=== PATIENT | female | born 1990 | race Caucasian/White ===

== ENCOUNTER 2022-03-20 01:26 | Emergency (ER) | payer BC, MEDICAID, SELFPAY ==
[2022-03-20] MEDS: EPINEPHrine 1 mg/mL INJ 0.5 MG IM (01:44)
[2022-03-20] MEDS: diphenhydrAMINE 50 mg/mL SDV 1mL IVP (01:44)
[2022-03-20] MEDS: famotidine 20 mg/2 mL INJ 40 MG IVP (01:44)
[2022-03-20 01:45] VITALS: BP 96/80; PULSE 101; RESP 24; TEMP 37.3; O2SAT 93; BMI 46.0
[2022-03-20] MEDS: ondansetron 2 mg/ML SDV 2 mL 4 MG IVP (01:45)
[2022-03-20 01:48] VITALS: BP 157/102; PULSE 100; RESP 20; O2SAT 92
[2022-03-20] MEDS: sodium chloride 0.9% 500 ML 999 ML IV (01:49)
--- NOTE | 2022-03-20 01:50 | W.ED.ALLEREA ---
HPI - Allergic Reaction General: Chief complaint: Allergic Reaction Stated complaint: allergic reaction Time Seen by Provider: 03/20/22 01:30 Source: patient Mode of arrival: ambulatory Limitations: no limitations History of Present Illness: HPI narrative: 31-year-old female who states that she had some tooth pain and tonight she taken an old amoxicillin she states that shortly thereafter roughly an hour or 2 ago she started having a rash to her chest and face along with lip and eye swelling and scratchiness in her throat and started having shortness of breath. She states she took Benadryl at home she denies any worsening improving factors. Patient does have an obvious rash here. Associated symptoms: Deny abdominal pain, nausea or vomiting Review of Systems Const: Denies: fever(s), chills, body aches or change in appetite Eyes: Denies: blurry vision or eye discomfort ENMT: Denies: throat pain or dental pain Card: Denies: chest pain Resp: Reports: dyspnea GI: Denies: abdominal pain, nausea, vomiting or diarrhea : Denies: dysuria Musc: Denies: neck pain or back pain Skin/Breast: Reports: rash and pruritus Neuro: Denies: headache(s) Psych: Denies: depression Yandel/Lymph: Denies: easy bruising All/Imm: Denies: urticaria PFSH ED PFSH: Medical History (Updated 03/20/22 @ 03:16 by Erin Jovel MD) No pertinent past medical history Social History (Updated 03/20/22 @ 01:51 by Erin Jovel MD) Substance/Drug Use: never Physical Exam Const: COMMON NORMALS: patient oriented x3 HENMT: COMMON NORMALS: normocephalic and atraumatic HEAD & SCALP: normocephalic and atraumatic OTHER: Slight tongue and lip swelling with some swelling of her eyes Eye: COMMON NORMALS: Equal, round and reactive pupils present and EOMs intact bilaterally PUPIL: Yes Equal, round and reactive pupils present Neck/C-Spine: COMMON NORMALS: full ROM and supple Chest: COMMONS NORMALS: normal inspection of the chest and normal palpation of entire chest wall Resp: COMMON NORMALS: normal respiratory effort, No retractions, No use of accessory muscles and clear to auscultation bilaterally AUSCULTATION: clear to auscultation bilaterally Cardio: COMMON NORMALS: regular rate, regular rhythm and No murmurs present (Cardio) RATE: regular rate RHYTHM: regular rhythm GI: COMMON NORMALS: Normal to inspection, nondistended, normoactive bowel sounds present, Soft to palpation, non-tender and no masses PALPATION: Yes Soft to palpation Extremity: COMMON NORMALS: normal to inspection and full ROM Neuro: COMMON NORMALS: patient oriented x3, moves all extremities and no focal motor deficits Psych: COMMON NORMALS: mental status grossly normal, Normal thought process present and cooperative THOUGHT PROCESS: Normal thought process present Skin: NARRATIVE SKIN EXAM: Urticarial rash to chest and arms Course Vital Signs: Vital signs: Vital Signs Temperature 99.1 F 03/20/22 01:45 Pulse Rate 101 H 03/20/22 03:12 Respiratory Rate 22 H 03/20/22 03:12 Blood Pressure 121/73 03/20/22 03:12 Pulse Oximetry 95 03/20/22 03:12 MDM - Allergic Reaction Medical Decision Making Patient presents here with an allergic reaction did have some slight face and tongue swelling and rash that is since resolved did observe her and she has had no return of her symptoms. She is stable for discharge we will prescribe her an EpiPen she is to follow-up with her PCP and return if worsening. Discharge Plan Discharge Patient Disposition: Home Clinical Impression: Allergic reaction Qualifiers: Encounter type: initial encounter Qualified Code(s): T78.40XA - Allergy, unspecified, initial encounter Prescriptions: New EpiPen 2-Hari 0.3 mg/0.3 mL auto-injector 0.3 mg IM Q20M PRN (Reason: anaphylaxis) Qty: 2 0RF Rx Instructions: do not exceed 3 doses per episode Discharge Orders: Discharge ED (Routine); Ordered 03/20/22 Ordered By: Erin Jovel Discharge Diet: Advance as tolerated Discharge Activity: Resume usual activity Patient Instructions: General Allergic Reaction (ED) Coding Level of Care Code ED Facing [employer]ting [employer] Operator for Caterina Fwskylar Exam Comprehensive
[2022-03-20 02:22] VITALS: BP 143/82; PULSE 87; RESP 21; O2SAT 97
[2022-03-20 03:12] VITALS: BP 121/73; PULSE 101; RESP 22; O2SAT 95
--- NOTE | 2022-03-20 03:19 | PC.NURSE ---
No tingling or numbness. No sob. still feels swollen to left side of her head, lips and eye lids. Ear ringing has resolved. Vision has returned to normal. Endorses a headache now. VSS.
[2022-03-20 03:40] VITALS: BP 139/77; PULSE 98; RESP 18; O2SAT 97
== END 2022-03-20 03:35 | disposition home or self-care (01) ==
PROVIDERS: Emergency Provider Emergency Medicine
DX: T78.40XA Allergy, unspecified, initial encounter (principal); R21 Rash and other nonspecific skin eruption; R22.0 Localized swelling, mass and lump, head
CPT/HCPCS: 96372; 96374; 96375; 99284; J0171; J1200; J2405; J2930; J3490; J7040

== ENCOUNTER 2024-01-28 21:06 | Emergency (ER) | payer BC, MEDICAID, SELFPAY ==
[2024-01-28 21:14] VITALS: BP 193/107; PULSE 78; RESP 16; TEMP 36.6; O2SAT 100
--- NOTE | 2024-01-28 22:15 | CTR_ITS ---
PROCEDURE INFORMATION: Exam: CT Head Without Contrast Exam date and time: 01/28/2024 10:26 PM Age: 33 years old Clinical indication: Pain; Headache; Additional info: [facility] TECHNIQUE: Imaging protocol: Computed tomography of the head without contrast. Radiation optimization: All CT scans at this facility use at least one of these dose optimization techniques: automated exposure control; mA and/or kV adjustment per patient size (includes targeted exams where dose is matched to clinical indication); or iterative reconstruction. COMPARISON: No relevant prior studies available. RADIATION DOSE METRICS: Total DLP (mGy-cm): 1012.2 FINDINGS: Brain: No intracranial hemorrhage. No edema or mass effect. No significant deep white matter abnormality. Mild volume loss somewhat out of proportion to patient's age. Cerebral ventricles: Prominent ventricles proportionate to mild sulcal prominence. Paranasal sinuses: Mild opacification of the posterior ethmoid air cells and right sphenoid sinus. Visualized paranasal sinuses are otherwise clear. Mastoid air cells: The mastoid air cells are clear. Bones: No acute osseous abnormalities are seen. Soft tissues: The soft tissues are within normal limits. CT/CT head wo con* [id number] IMPRESSION: No acute intracranial pathology.
--- NOTE | 2024-01-28 22:17 | W.ED.HA ---
HPI - Headache General: Chief Complaint: Headache Stated Complaint: migraine 6 days, Time Seen by Provider: 01/28/24 21:07 Source: patient Mode of arrival: ambulatory Limitations: no limitations History of Present Illness: 33-year-old female states she has had a headache for the last 6 days she states that it waxes and wanes mainly in her posterior head. She denies any fevers denies any nausea or vomiting she denies any photophobia or phonophobia she denies a sudden onset of symptoms. Associated symptoms: Deny chest pain, fever(s), nausea, rash or vomiting Review of Systems Const: Denies: fever(s), chills, body aches or change in appetite Eyes: Denies: blurry vision or eye discomfort ENMT: Denies: throat pain or dental pain Card: Denies: chest pain Resp: Denies: dyspnea GI: Denies: abdominal pain, nausea, vomiting or diarrhea Musc: Denies: neck pain or back pain Skin/Breast: Denies: rash Neuro: Reports: headache(s) PFS ED PFSH: Medical History No pertinent past medical history Social History Substance/Drug Use: never Physical Exam Const: COMMON NORMALS: no acute distress, patient oriented x3 and healthy appearing HENMT: COMMON NORMALS: normocephalic and atraumatic HEAD & SCALP: normocephalic and atraumatic Eye: COMMON NORMALS: Equal, round and reactive pupils present and EOMs intact bilaterally PUPIL: Yes Equal, round and reactive pupils present Neck/C-Spine: COMMON NORMALS: full ROM and supple Chest: COMMONS NORMALS: normal inspection of the chest Resp: COMMON NORMALS: normal respiratory effort Cardio: COMMON NORMALS: regular rate, regular rhythm and No murmurs present (Cardio) RATE: regular rate RHYTHM: regular rhythm Extremity: COMMON NORMALS: normal to inspection and full ROM Neuro: COMMON NORMALS: patient oriented x3, moves all extremities and no focal motor deficits Psych: COMMON NORMALS: mental status grossly normal, Normal thought process present and cooperative THOUGHT PROCESS: Normal thought process present Skin: COMMON NORMALS: no rashes or lesions noted and no wounds GENERAL SKIN EXAM: no rashes or lesions noted Course Vital Signs: Vital signs: Vital Signs Temperature 97.8 F 01/28/24 21:14 Pulse Rate 78 01/28/24 21:14 Respiratory Rate 16 01/28/24 21:14 Blood Pressure 193/107 01/28/24 21:14 Pulse Oximetry 100 01/28/24 21:14 Oxygen Delivery Me thod Room Air 01/28/24 21:14 MDM - Headache Medical Decision Making Patient presents here with headaches likely tension headache her head CT here is normal she has no signs of meningitis subarachnoid hemorrhage she feels improved she stable for discharge follow-up PCP return if worsening. Medical Records I reviewed the patient's medical records. Lab Data I reviewed the patient's lab results. Radiology Impressions Head CT 01/28/24 22:15 IMPRESSION: No acute intracranial pathology. All radiology interpretation(s) finalized by discharge Discharge Plan Discharge Patient Disposition: Home Clinical Impression: Headache Condition: Stable Prescriptions: No Action EpiPen 2-Hari 0.3 mg/0.3 mL auto-injector 0.3 mg IM Q20M PRN (Reason: anaphylaxis) Qty: 2 0RF Rx Instructions: do not exceed 3 doses per episode Discharge Orders: Discharge ED (Routine); Ordered 01/29/24 Ordered By: Erin Jovel Discharge Diet: Advance as tolerated Discharge Activity: Resume usual activity Patient Instructions: General Headache (ED) Coding Level of Care Code ED [employer] Inspector for Caterina Parker
[2024-01-28] MEDS: diphenhydrAMINE 50 mg/mL SDV 1mL IM (22:34)
[2024-01-28] MEDS: metoclopramide 5 mg/mL SDV 2 mL 10 MG IM (22:34)
[2024-01-29 00:27] VITALS: BP 145/99; PULSE 72; RESP 16; O2SAT 98
== END 2024-01-29 00:28 | disposition home or self-care (01) ==
PROVIDERS: Emergency Provider Emergency Medicine
DX: R51.9 Headache, unspecified (principal)
CPT/HCPCS: 70450; 96372; 99284; J1200; J2765